=== PATIENT | male | born 1960 | race Caucasian/White ===

== ENCOUNTER → 2020-07-08 08:26 | Outpatient (BNVA) | payer BC, SELFPAY | PROVIDERS: PCP Internal Medicine; Referring Provider Internal Medicine; Visit Provider Hospitalist | DX: Z76.89 Persons encountering health services in other specified circumstances (principal) ==

== ENCOUNTER → 2021-07-06 08:29 | Outpatient (BNVA) | payer OTHER, SELFPAY | PROVIDERS: PCP Internal Medicine; Visit Provider Hospitalist ==

== ENCOUNTER 2021-07-21 08:02 | Outpatient (REF) | payer OTHER, SELFPAY ==
--- NOTE | ~2021-07-21 | CT_ITS ---
EXAMINATION: CT CHEST WITHOUT CONTRAST CLINICAL INFORMATION: Other nonspecific abnormal finding of lung field. COMPARISON: None TECHNIQUE: Multidetector volumetric CT imaging of the chest was done. Axial MIP volume rendering provided. Sagittal and coronal reformatted images were obtained. This CT examination was performed using dose optimization techniques as appropriate, variously including the following: *Automated exposure control *Adjustment of mA and/or kV according to patient size (this includes techniques or standardized protocols for targeted exams where dose is matched to indication/reason for exam; i.e. extremities or head) *Use of iterative reconstruction technique DLP: 308 mGy-cm FINDINGS: ROUTE CONTRACTOR: Low lung volumes and slight elevation of the left hemidiaphragm. LUNGS: There is a 2 mm left upper lobe nodule axial image 112 series 7. There is a 2 mm peripheral or subpleural left lower lobe nodule adjacent to the fissure axial image 220 series 7. There is a 2 mm peripheral or subpleural right lower lobe nodule adjacent to the spine axial image 263 series 7. There are small 3 mm left lower lobe nodules adjacent to the fissure axial image 268 series 7 and 284 series 7. There is a 3 mm right middle lobe nodule axial image 280 series 7. There is a 2 mm peripheral or subpleural right middle lobe nodule adjacent to the fissure axial image 291 series 7. There is a 3 mm right lower lobe nodule axial image 316 series 7. There is a 2 mm right middle lobe nodule axial image 328 series 7. There is a 3 mm right lower lobe nodule axial image 374 series 7. There is a 3 mm right lower lobe nodule axial image 379 series 7. There is a 3 x 5 mm right middle lobe nodule axial image 414 series 7. There is subsegmental atelectasis at the left lung base. The lungs are otherwise clear. MEDIASTINUM: The mediastinum is normal. PLEURA: There is no pleural effusion. No pleural mass or thickening. AXILLA: No lymphadenopathy. UPPER ABDOMEN: There is a 2 cm left retroperitoneal lesion axial image 56 series 3, question representing an exophytic left adrenal nodule. Hounsfield units without contrast measure 20 which is indeterminate. There are cystic areas in the central left kidney questionable for left renal peripelvic cysts versus hydronephrosis. There is diverticulosis of the colon. OSSEOUS STRUCTURES: There are degenerative changes of the spine. There is a small sclerotic lesion in the right lateral 9th rib probably representing a bone island. There is a lucent lesion with vertical striations in the T9 vertebral body suggestive of a hemangioma. CT/CT chest wo con IMPRESSION: Small bilateral pulmonary nodules, largest measuring 3 x 5 mm in the right middle lobe. 2 cm probable exophytic left adrenal nodule with indeterminate Hounsfield units. Question left renal peripelvic cysts versus hydronephrosis. Fleischner guidelines were followed.
== END 2021-07-21 08:03 | disposition home or self-care (01) ==
LOC: HO.CT 08:02
PROVIDERS: Visit Provider Hospitalist
DX: R91.8 Other nonspecific abnormal finding of lung field (principal)
CPT/HCPCS: 71250

== ENCOUNTER 2023-05-17 09:10 | Outpatient (AMB) | payer BC, SELFPAY ==
[2023-05-17 09:22] VITALS: BP 110/60; PULSE 63; O2SAT 97; BMI 30.5
--- NOTE | 2023-05-17 09:22 | MHC.OFFVIS ---
Intake Vital Signs 05/17/23 09:22 Height 6 ft Weight 224 lb 13.944 oz BMI 30.5 BP 110/60 Blood Pressure Location Lt brachial Position Sitting Pulse 63 Pulse Source Pulse Oximeter Pulse Oximetry (%) 97 Oxygen Delivery Method Room Air Intake Visit Reasons: Asthma Air Gun Operator Required: No Allergies IV Dye Allergy (Severe, Uncoded 05/17/23 09:25) Burning Sensation HPI HPI Comments History of Present Illness Details The patient is a 62-year-old man with a history of asthma COPD on Nucala with good response. He is also on Symbicort. He needs his medications refilled. In addition to that his respiratory status is relatively stable. Denies any exacerbations recently. Has not been on any prednisone for some time which is very reassuring. In regards of CPAP is still struggling to try to find the right mask. CPAP therapy continues to be affecting beneficial. He does use his CPAP more than 4 hours. Will try using the F30 fullface mask to see if he can tolerate the CPAP better. If not we may have to adjust the pressures. Hopefully with the mask will be enough. 07/08/2020 the patient is here for pulmonary follow-up visit. Overall he is doing very well. He continues on the Nucala in currently doing it at home. He is also continue his respiratory medications. He does have episodes of cough and shortness of breath at times. Does respond well to his rescue therapy. The CPAP therapy has been effective in beneficial. He continues to use the machine more than 4 hours a night. He does get supplies regularly through his [employer] company [employer]. In regards of his history of pneumonitis and pulmonary nodules we did go back and look at his last CT scan of the chest that was done back in 2017. It was compared to a CAT scan from 2017. He had numerous pulmonary nodules largest measuring 5 mm. 07/06/2021 the patient is here for a pulmonary follow-up visit. He continues to use his medications regularly. Patient does have Symbicort available that he uses twice a day. The Nucala injections continue very affecting beneficial for significant allergic asthma. He has not required any prednisone. Since we last spoke the patient has been having increasing shortness of breath and cough. [id number] severity. He has had to use his rescue inhaler more often. Usually more than twice a week. He did have a chest x-ray back in May 2020 demonstrating linear opacities suggesting some degree of atelectasis. We also reviewed his last CT scan of the chest was back in 2017 demonstrating 5 mm pulmonary nodules. In view of the patient's ongoing symptoms he will be reasonable to repeat the CT scan to assess if the nodules have increased in size. The patient is aware that is the nodules have increased in size then he will require further diagnostic Interventions. Patient continues uses CPAP at nighttime. CPAP therapy continues to be affecting beneficial. He does try to use it more than 4 hours a night. The patient has recovered from COVID 19. He was fully vaccinated but he got sick with COVID in beginning of April. The patient recovered well. He did not require any monoclonal antibody. He did get his vaccines and now wondering if she get a booster. Will recheck this titers next year and will address the question once we see the blood work. In addition to that The patient injured his right shoulder now not been able to lift it up. He will call his primary care or his orthopedist to get further evaluation at this time. 05/17/2023 the patient is here for a pulmonary follow-up visit. He is doing very well. The patient continues on the Nucala injections. 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 Although, just before the injection is due he starts developing worsening cough symptoms. If he starts continued to have worsening respiratory symptoms just prior to the next dose and may be that his affect started weaning in the patient may benefit from a different biologic therapy. He will keep me updated to see if her symptoms worsen. For now will keep him on Nucala since he has done well with it and he has tolerated the medication without any significant adverse effects. He continues with respiratory therapy. He is does use Symbicort. He has not required any prednisone. Recently about a month ago he started developing worsening respiratory symptoms and cough. Productive in nature. [place] like he had pneumonia. He did call the office but we did not have any availability. The patient did not take any medicines use continue with his current regimen and he did improved. Examination he does not have any wheezing but he does have some crackles on the left base. Therefore I will going to request a chest x-ray. The patient otherwise is doing well will continue with current therapy. If the patient's respiratory symptoms worsen he is to start the Z-Marco. I will provide him with a prescription. [facility] Medical History (Updated 05/17/23 @ 09:33 by Robbin Christie MD) GIGI on CPAP Pulmonary nodules Asthma Social History (Updated 07/06/21 @ 08:38 by ROMARIO Lackey) Patient Tobacco Use Status: Never used Tobacco Review of Systems Const Denies night sweats and Reports weight loss ENT Denies change in voice, Denies lip swelling, Denies mouth pain, Reports nasal congestion, Reports nasal discharge and Denies tongue swelling Card Denies chest pain and Denies dyspnea on exertion Resp Reports cough, Denies dyspnea on exertion and Reports wheezing GI Denies abdominal pain Musc Reports arthralgias, Reports joint swelling and Reports limited range of motion Neuro Denies Neuro-related abnormal movements Psych Denies no additional complaints Marquez/Lymph Denies easy bleeding and Denies lymphadenopathy Aller/Immun Denies lip swelling, Denies tongue swelling and Reports wheezing Physical Exam Vital Signs: Last Vital Signs Pulse 63 05/17/23 09:22 BP 110/60 05/17/23 09:22 Pulse Ox 97 05/17/23 09:22 Oxygen Delivery Method Room Air 05/17/23 09:22 BMI result Body Mass Index 30.5 Const General: alert HEENT General nose exam: Abnormal external nose present and Nasal discharge present Eyes Pupils: Equal, round and reactive pupils present Neck Neck: Yes normal visual inspection, Yes full ROM and Yes no lymphadenopathy Chest Chest palpation & inspection: normal inspection of the chest Resp Auscultation: crackles on the left at the base, no rhonchi, no wheezes and diminished lung sounds Cardio Rate: regular rate Rhythm: regular rhythm Heart sounds: S1 normal heart sound present and S2 normal heart sound present GI Palpation (GI): Soft to palpation and nontender Auscultation: normal bowel sounds General: Yes no CVA tenderness Back/Spine/Pelvis Back: no CVA tenderness Skin General skin exam: rashes and/or lesions noted Neuro Cranial nerves: Yes Equal, round and reactive pupils present Assessment & Plan Assessment & Plan (1) Asthma: Code(s): J45.909 - Unspecified asthma, uncomplicated Qualifiers: Asthma complication type: uncomplicated Asthma persistence: persistent Asthma severity: moderate Qualified Code(s): J45.40 - Moderate persistent asthma, uncomplicated Plan: Continue respiratory therapy (2) Pulmonary nodules: Code(s): R91.8 - Other nonspecific abnormal finding of lung field Plan: Needs a repeat CT scan to follow up with the pulmonary nodules largest measuring 5 [address] in size[address] The [address] scan was done at [facility] so therefore we will request the same place of the can compare better. (3) GIGI on CPAP: Code(s): G47.33 - Obstructive sleep apnea (adult) (pediatric); Z99.89 - Dependence on other enabling machines and devices Plan: Continue CPAP therapy Plan continue CPAP therapy Continue Nucala qmonthly, if not effective then consider switching to Fasenra Continue Symbicort BID WEN as needed CXR F/U 1 yr Orders: Orders XR chest 2V Today J45.909 - Unspecified asthma, uncomplicated Medications: New azithromycin 500 mg PO DAILY 5 days 5 tabs 0RF azithromycin 500 mg PO DAILY 5 days 5 tabs 0RF Coding Level of Care Code Est Pt Level 4 (23232) Diagnoses Moderate persistent asthma without complication J45.40 Asthma complication type: uncomplicated Asthma persistence: persistent Asthma severity: moderate Pulmonary nodules R91.8 GIGI on CPAP G47.33; Z99.89 Time Spent (min) 20
== END 2023-05-17 09:40 | disposition home or self-care (01) ==
PROVIDERS: PCP Internal Medicine; Visit Provider Hospitalist
DX: J45.40 Moderate persistent asthma, uncomplicated (principal); R91.8 Other nonspecific abnormal finding of lung field; G47.33 Obstructive sleep apnea (adult) (pediatric); Z99.89 Dependence on other enabling machines and devices
CPT/HCPCS: 99214

== ENCOUNTER → 2023-05-17 09:10 | Outpatient (BNVA) | payer BC, SELFPAY | PROVIDERS: PCP Internal Medicine; Visit Provider Hospitalist ==